=== PATIENT | male | born 2000 | race Caucasian/White ===

== ENCOUNTER 2019-04-05 20:18 | Emergency (ER) | payer OTHER ==
[2019-04-05 20:41] VITALS: BP 121/81
--- NOTE | 2019-04-05 21:21 | UC ---
Throat Pain/Nasal Ayaan HPI - HPI Summary HPI Summary: 18 yo male with mild nasal congestion and cough x 2 days today with fever/chills/severe myalgias/productive cough and NORMAN no cp or sob no n/v/d anorexic - History of Current Complaint Chief Complaint: UCRespiratory Stated Complaint: FLU LIKE SYMPTOMS,SINUS/CHEST CONGESTION Time Seen by Provider: 04/05/19 21:13 Hx Obtained From: Patient Onset/Duration: Gradual Onset, Worse Since - this am Severity: Severe Pain Intensity: 7 Pain Scale Used: 0-10 Numeric Cough: Productive Associated Signs & Symptoms: Positive: Sinus Discomfort, Nasal Discharge, Fever - Epiglottits Risk Factors Epiglottis Risk Factors: Negative - Allergies/Home Medications Allergies/Adverse Reactions: Allergies Allergy/AdvReac Type Severity Reaction Status Date / Time No Known Allergies Allergy Verified 04/05/19 20:38 PMH/Surg Hx/FS Hx/Imm Hx Previously Healthy: Yes - Surgical History Surgical History: Yes Surgery Procedure, Year, and Place: Right , 2014 - Family History Known Family History: Positive: Cardiac Disease - Social History Alcohol Use: Weekly Alcohol Amount: WEEKENDS Substance Use Type: None Smoking Status (MU): Never Smoked Tobacco Type: eCigarettes Amount Used/How Often: ecigs x3 years Review of Systems All Other Systems Reviewed And Are Negative: Yes Constitutional: Positive: Fever, Chills Skin: Positive: Negative Eyes: Positive: Negative ENT: Positive: Sore Throat, Nasal Discharge, Sinus Congestion, Sinus Pain/ Tenderness Respiratory: Positive: Cough Cardiovascular: Positive: Negative Gastrointestinal: Positive: Negative Genitourinary: Positive: Negative Motor: Positive: Negative Neurovascular: Positive: Negative Musculoskeletal: Positive: Negative Neurological: Positive: Negative Psychological: Positive: Negative Physical Exam Triage Information Reviewed: Yes Appearance: Well-Appearing - non toxic, No Pain Distress, Well-Nourished Vital Signs: Initial Vital Signs Temp 99.4 F 04/05/19 20:38 Pulse 115 04/05/19 20:38 Resp 16 04/05/19 20:38 BP 121/81 04/05/19 20:38 Pulse Ox 98 04/05/19 20:38 Vital Signs Reviewed: Yes Eyes: Positive: Conjunctiva Clear ENT: Positive: Hearing grossly normal, Pharyngeal erythema, Nasal congestion, Nasal drainage, TMs normal, Uvula midline. Negative: Tonsillar swelling, Tonsillar exudate, Trismus, Muffled voice, Sinus tenderness Dental Exam: Normal Neck: Positive: Supple, Nontender, Enlarged Nodes @ - anterior cervical Respiratory: Positive: Lungs clear, Normal breath sounds, No respiratory distress, No accessory muscle use Cardiovascular: Positive: RRR, Tachycardia Abdomen Description: Positive: Nontender, No Organomegaly. Negative: CVA Tenderness (R), CVA Tenderness (L) Bowel Sounds: Positive: Present Musculoskeletal: Positive: ROM Intact, No Edema Neurological: Positive: Alert Psychological Exam: Normal Skin Exam: Normal Diagnostics - Laboratory Lab Results: strep (-) influenza (-) Throat Pain/Nasal Course/Dx - Differential Dx/Diagnosis Provider Diagnosis: Influenza-like illness Discharge ED - Sign-Out/Discharge Documenting (check all that apply): Patient Departure All imaging exams completed and their final reports reviewed: No Studies - Discharge Plan Condition: Stable Disposition: HOME Patient Education Materials: Upper Respiratory Infection (ED) Forms: *School Release Additional Instructions: rest fluids recheck for worsening symptoms or in not better in 2-3 days tylenol or advil flu and strep test (-) - Billing Disposition and Condition Condition: STABLE Disposition: Home
[2019-04-05 21:37] LABS: Influenza A Molecular NEGATIVE (Negative); Influenza B Molecular NEGATIVE (Negative)
[2019-04-05] MEDS ORDERED: Benzonatate CAP* 100 MG PO ONE (21:52)
== END 2019-04-05 22:01 | disposition home or self-care (01) ==
LOC: UCCORT 20:18
DX: R09.81 Nasal congestion (principal); R05 Cough; J02.9 Acute pharyngitis, unspecified; R09.89 Other specified symptoms and signs involving the circulatory and respiratory systems; R51 Headache; R50.9 Fever, unspecified
CPT/HCPCS: 87651; 99202; A9270-GY; G0463